=== PATIENT | male | born 1990 | race Caucasian/White ===

== ENCOUNTER 2017-05-14 09:19 | Emergency (ER) | payer OTHER ==
[~2017-05-14] VITALS: Ht 162.6 cm; Wt 56.7 kg
== END 2017-05-14 11:19 ==
LOC: ED 09:19
DX: S00.83XA Contusion of other part of head, initial encounter (principal); S20.212A Contusion of left front wall of thorax, initial encounter; F17.200 Nicotine dependence, unspecified, uncomplicated; V81.4XXA Person injured while boarding or alighting from railway train or railway vehicle, initial encounter
CPT/HCPCS: 70486; 71020; 99284